=== PATIENT | female | born 1950 | race Caucasian/White ===

== ENCOUNTER → 2016-11-13 | Outpatient (CLI) | payer MEDICARE, OTHER | LOC: RAD 07:54 | PROVIDERS: ATTEND Internal Medicine Gastroenterology | DX: K76.0 Fatty (change of) liver, not elsewhere classified (principal); K74.3 Primary biliary cirrhosis | CPT/HCPCS: 76705 ==

== ENCOUNTER 2016-12-29 09:16 | Emergency (ER) | payer MEDICARE, OTHER ==
[2016-12-29] MEDS ORDERED: NORMAL SALINE 1000 ML 1,000 ML IV ONE (11:01)
--- NOTE | 2016-12-29 11:18 | ER Document Report ---
ED Medical Screen (RME) - General Chief Complaint: Back Pain Stated Complaint: BACK PAIN Time Seen by Provider: 12/29/16 10:26 Notes: Patient is a 66-year-old female who presents emergency department complaining of body aches, chills, low-grade fever, nausea and urinary frequency for the past 9 days. Patient states that 9 days ago she had sudden onset of body aches but has become consistently worse over the past 2 days. She states that she has severe lower extremity pain left worse than the right it is all over the front and back for the legs and in her groin. She denies any urinary/stool incontinence, saddle anesthesia. Patient has taken Percocet and muscle relaxers which have not helped at all. Past medical history significant for MS, osteoarthritis, sciatica, insulin- dependent diabetes, history of thyroid cancer diagnosed in 2010 status post radiation in 2011. Last PET scan was in 2014 which revealed positive lymph nodes which were biopsied and removed. Patient has not had a negative PET scan since. Past surgical history significant for thyroidectomy, lymphadenectomy, breast reduction, hysterectomy Social history significant for history of tobacco use, denies any alcohol use, admits to social marijuana use Denies any allergies Primary care physician is Dr. Geronimo Cadena, oncologist is Dr. Kapoor in [place]. Patient does not currently have a neurologist. I have greeted and performed a rapid initial assessment of this patient. A comprehensive ED assessment and evaluation of the patient, analysis of test results and completion of the medical decision making process will be conducted by additional ED providers. TRAVEL OUTSIDE OF THE [place] IN LAST 30 DAYS: No - Related Data Allergies/Adverse Reactions: No Known Allergies Allergy (Unverified 12/29/16 09:20) Past Medical History - Past Medical History Cardiac Medical History: Reports: Hx Hypertension Denies: Hx Coronary Artery Disease, Hx Heart Attack Pulmonary Medical History: Denies: Hx Asthma, Hx Bronchitis, Hx COPD, Hx Pneumonia Neurological Medical History: Denies: Hx Cerebrovascular Accident Renal/ Medical History: Denies: Hx Peritoneal Dialysis Musculoskeltal Medical History: Reports Hx Arthritis - ms - Immunizations Hx Diphtheria, Pertussis, Tetanus Vaccination: Yes Physical Exam - Vital signs Vitals: Temp Pulse Resp BP Pulse Ox 99.9 F 106 H 20 145/84 H 96 12/29/16 09:22 12/29/16 09:22 12/29/16 09:22 12/29/16 09:22 12/29/16 09:22 - General General appearance: Appears well, Alert, Anxious - Back Back: Tender - diffuse paraspinal muscle tenderness to palpation without tense muscles. No: Deformity/step-off, CVA tenderness, Vertebra tenderness - Extremities General upper extremity: Normal inspection, Normal color, Normal ROM, Normal strength, Normal temperature General lower extremity: Normal inspection, Normal color, Normal ROM, Normal strength, Normal temperature, Other - gait unstable, difficulty bearing weight. No: Isidro's sign Course - Vital Signs Vital signs: Temp Pulse Resp BP Pulse Ox 99.9 F 106 H 20 145/84 H 96 12/29/16 09:22 12/29/16 09:22 12/29/16 09:22 12/29/16 09:22 12/29/16 09:22
--- NOTE | 2016-12-29 12:18 | RADIOLOGY REPORT (SQ) ---
EXAM DESCRIPTION: CHEST PA/LAT COMPLETED DATE/TIME: 12/29/2016 11:59 am REASON FOR STUDY: body aches, fever COMPARISON: 07/02/2007 EXAM PARAMETERS: NUMBER OF VIEWS: two views TECHNIQUE: Digital Frontal and Lateral radiographic views of the chest acquired. RADIATION DOSE: NA LIMITATIONS: none FINDINGS: LUNGS AND PLEURA: No opacities, masses or pneumothorax. No pleural effusion. MEDIASTINUM AND HILAR STRUCTURES: No masses or contour abnormalities. HEART AND VASCULAR STRUCTURES: Heart normal size. No evidence for failure. BONES: No acute findings. HARDWARE: None in the chest. OTHER: No other significant finding. IMPRESSION: NO SIGNIFICANT RADIOGRAPHIC FINDING IN THE CHEST. TECHNICAL DOCUMENTATION: JOB ID: [id number] [employer]- All Rights Reserved
[2016-12-29 13:51] LABS: ABSOLUTE BASOPHILS # (AUTO) 0.1 10^3/uL (0.0-0.2); ABSOLUTE EOSINOPHILS # (AUTO) 0.1 10^3/uL (0.0-0.6); ABSOLUTE LYMPHOCYTES (AUTO) 1.6 10^3/uL (0.5-4.7); ABSOLUTE MONOCYTES (AUTO) 0.6 10^3/uL (0.1-1.4); ABSOLUTE NEUT (AUTO) 9.4 10^3/uL (1.7-8.2); BASOPHILS % (AUTO) 0.6 % (0-2); EOSINOPHILS % (AUTO) 0.9 % (0-6); HEMATOCRIT 37.5 % (36.0-47.0); HEMOGLOBIN 11.9 g/dL (12.0-15.5); HGB HCT DIFFERENCE -1.8; LYMPHOCYTES % (AUTO) 13.2 % (13-45); MEAN CORPUSCULAR HEMOGLOBIN 23.7 pg (27.0-33.4); MEAN CORPUSCULAR HGB CONC 31.8 g/dL (32.0-36.0); MEAN CORPUSCULAR VOLUME 75 fl (80-97); MONOCYTES % (AUTO) 5.4 % (3-13); RED BLOOD COUNT 5.03 10^6/uL (3.72-5.28); RED CELL DISTRIBUTION WIDTH 18.3 % (11.5-14.0); SEGMENTED NEUTROPHILS % (AUTO) 79.9 % (42-78); WHITE BLOOD COUNT 11.8 10^3/uL (4.0-10.5)
[2016-12-29 14:13] LABS: ALANINE AMINOTRANSFERASE 28 U/L (9-52); ALBUMIN 4.1 g/dL (3.5-5.0); ALKALINE PHOSPHATASE 135 U/L (38-126); ANION GAP 13 (5-19); ASPARTATE AMINO TRANSFERASE 26 U/L (14-36); BILIRUBIN,DIRECT 0.4 mg/dL (0.0-0.4); BILIRUBIN,TOTAL 0.8 mg/dL (0.2-1.3); BLOOD UREA NITROGEN 12 mg/dL (7-20); CALCIUM 9.6 mg/dL (8.4-10.2); CARBON DIOXIDE 27 mmol/L (22-30); CHLORIDE 97 mmol/L (98-107); CREATINE KINASE 34 U/L (30-135); CREATININE RESULT 0.75 mg/dL (0.52-1.25); GLUCOSE 101 mg/dL (75-110); POTASSIUM 4.1 mmol/L (3.6-5.0); SODIUM 136.8 mmol/L (137-145); TOTAL PROTEIN 7.6 g/dL (6.3-8.2)
[2016-12-29 14:19] LABS: APPEARANCE,URINE CLEAR; GLUCOSE, URINE NEGATIVE (NEGATIVE)
[2016-12-29 14:20] LABS: BILIRUBIN,URINE NEGATIVE (NEGATIVE); KETONES,URINE NEGATIVE (NEGATIVE); LEUKOCYTE ESTERASE,URINE NEGATIVE (NEGATIVE); NITRITE,URINE NEGATIVE (NEGATIVE); PROTEIN,URINE NEGATIVE (NEGATIVE); RBC,URINE 0-1 /HPF; URINE SPECIFIC GRAVITY 1.015; UROBILINOGEN,URINE NEGATIVE mg/dL (<2.0); WBC,URINE 0-1 /HPF
[2016-12-29] MEDS ORDERED: MORPHINE SULFATE 10 MG/ML INJ IV ONE (14:27)
[2016-12-29] MEDS ORDERED: PREDNISONE 20 MG TABLET PO ONE (14:56)
[2016-12-29] MEDS ORDERED: METHOCARBAMOL 500 MG TABLET PO ONE (14:56)
--- NOTE | 2016-12-29 14:57 | ER Document Report ---
ED Neck/Back Problem - General Chief Complaint: Back Pain Stated Complaint: BACK PAIN Time Seen by Provider: 12/29/16 10:26 Mode of Arrival: Ambulatory Information source: Patient Notes: Patient is a 66-year-old female who presents to the ER today for 1 week of left- sided low back pain radiating around to the left leg, she has a history of sciatica and states that this feels exactly like that. She also has multiple sclerosis patient but states she has never had a flare. She denies pain all over. She denies any fever, chills, dysuria, hematuria, abnormal vaginal discharge, nausea, vomiting or diarrhea. She states she has nothing at home to take for the pain. She denies any numbness or tingling. TRAVEL OUTSIDE OF THE [place] IN LAST 30 DAYS: No - Related Data Allergies/Adverse Reactions: No Known Allergies Allergy (Unverified 12/29/16 09:20) Past Medical History - General Information source: Patient - Social History Smoking Status: Unknown if Ever Smoked Frequency of alcohol use: None Drug Abuse: None Family History: Reviewed & Not Pertinent Patient has suicidal ideation: No Patient has homicidal ideation: No - Past Medical History Cardiac Medical History: Reports: Hx Hypertension Denies: Hx Coronary Artery Disease, Hx Heart Attack Pulmonary Medical History: Denies: Hx Asthma, Hx Bronchitis, Hx COPD, Hx Pneumonia Neurological Medical History: Denies: Hx Cerebrovascular Accident Renal/ Medical History: Denies: Hx Peritoneal Dialysis Musculoskeltal Medical History: Reports Hx Arthritis - ms - Immunizations Hx Diphtheria, Pertussis, Tetanus Vaccination: Yes Review of Systems - Review of Systems Constitutional: No symptoms reported EENT: No symptoms reported Cardiovascular: No symptoms reported Respiratory: No symptoms reported Gastrointestinal: No symptoms reported Genitourinary: No symptoms reported Female Genitourinary: No symptoms reported Musculoskeletal: See HPI Skin: No symptoms reported Hematologic/Lymphatic: No symptoms reported Neurological/Psychological: No symptoms reported Physical Exam - Vital signs Vitals: Temp Pulse Resp BP Pulse Ox 99.9 F 106 H 20 145/84 H 96 12/29/16 09:22 12/29/16 09:22 12/29/16 09:22 12/29/16 09:22 12/29/16 09:22 - Notes Notes: PHYSICAL EXAMINATION: GENERAL: Well-appearing, smiling, texting, sitting in bed comfortably with legs bent, and in no acute distress. HEAD: Atraumatic, normocephalic. EYES: Pupils equal round and reactive to light, extraocular movements intact, sclera anicteric, conjunctiva are normal. NECK: Normal range of motion, supple without lymphadenopathy LUNGS: CTAB and equal. No wheezes rales or rhonchi. HEART: Regular rate and rhythm without murmurs ABDOMEN: Soft, no tenderness. No guarding, no rebound BACK: Bilateral SI joint tenderness, Lumbar vertebral tenderness, normal ROM GI/: no CVA tenderness EXTREMITIES: Normal range of motion, no pitting edema. No cyanosis. NEUROLOGICAL: Cranial nerves grossly intact. Normal sensory/motor exams. PSYCH: Normal mood, normal affect. SKIN: Warm, Dry, normal turgor, no rashes or lesions noted Course - Re-evaluation Re-evalutation: 12/29/16 15:24 Lab work is unremarkable today. I did watch patient walk to the bathroom without any issues. Patient sits up in the bed slowly and winces slightly but otherwise can do it just fine by herself. I do not believe this is an MS flare , patient describes sciatica pain. I will treat her with anti-inflammatory pain medication muscle relaxer and steroids. - Vital Signs Vital signs: Temp Pulse Resp BP Pulse Ox 98.6 F 92 16 142/77 H 95 12/29/16 16:14 12/29/16 16:14 12/29/16 16:14 12/29/16 16:14 12/29/16 16:14 - Laboratory Result Diagrams: 12/29/16 13:17 12/29/16 13:17 Laboratory results interpreted by me: 12/29/16 12/29/16 13:17 13:17 WBC 11.8 H Hgb 11.9 L MCV 75 L MCH 23.7 L MCHC 31.8 L RDW 18.3 H Seg Neutrophils % 79.9 H Absolute Neutrophils 9.4 H Sodium 136.8 L Chloride 97 L Alkaline Phosphatase 135 H Discharge - Discharge Clinical Impression: Sciatica Qualifiers: Laterality: left Qualified Code(s): M54.32 - Sciatica, left side Disposition: HOME, SELF-CARE Instructions: Ice Packs ([facility]), Warm Packs ([facility]) Additional Instructions: Return immediately for any new or worsening symptoms. Follow up with primary care provider, call tomorrow to make followup appointment. Prescriptions: Ibuprofen [Motrin 800 mg Tablet] 800 mg PO Q8H PRN #30 tab PRN Reason: Methocarbamol [Robaxin 500 mg Tablet] 1,000 mg PO BID PRN #120 tablet PRN Reason: Prednisone 60 mg PO DAILY #21 tablet Referrals: CARLOS PRIEST MD [Primary Care Provider] - Follow up as needed
[2016-12-29 16:17] VITALS: BP 142/77
== END 2016-12-29 16:14 | disposition home or self-care (01) ==
LOC: ER 09:16
DX: M54.42 Lumbago with sciatica, left side (principal); G35 Multiple sclerosis; I10 Essential (primary) hypertension
CPT/HCPCS: 99284; 96361; 96374; 36415; 82550; 85025; 80053; 81001; 71020; A9270 ×2; J2270; J7030; J7512

== ENCOUNTER 2017-02-16 08:01 | Day surgery (SDC) | payer MEDICARE, OTHER ==
[2017-02-16 09:26] LABS: PROTHROMBIN TIME 13.8 SEC (11.4-15.4)
[2017-02-16 09:27] LABS: PARTIAL THROMBOPLASTIN TIME 33.3 SEC (23.5-35.8)
--- NOTE | 2017-02-16 12:31 | RADIOLOGY REPORT (SQ) ---
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 FLUOROSCOPY TIME: 1 minutes 36 seconds TECHNIQUE: Fluoroscopic guided lumbar myelogram. LIMITATIONS: None. PROCEDURE: After written consent and assessment were obtained, the patient was brought into the fluo roscopy room and placed prone on the table. The patient's lower back was prepped in a sterile fashio n and an entry site was selected under live fluoroscopic guidance. The entry site was anesthetized wi th 1% lidocaine. The spinal needle was advanced through the skin and into the thecal sac at the level of L2-3. Contrast was injected into the thecal sac. Following the procedure the needle was removed and a sterile bandage was placed of the site. CONTRAST: 15 mL Isovue 200 M. IMAGES ACQUIRED: 15 TECHNIQUE: After performing lumbar myelogram, axial images were acquired through the lumbar spine wi thout intravenous contrast. Images reviewed with lung, soft tissue and bone windows. Reconstructed coronal and sagittal MPR images reviewed. All images stored on PACS. All CT scanners at this facility use dose modulation, iterative reconstruction, and/or weight based d osing when appropriate to reduce radiation dose to as low as reasonably achievable (ALARA). [facility]: Dose Right [facility]: CareDose [facility]: Dose Right [facility]: Teradose 4D [facility]: [employer] FINDINGS: There is ventral impression on the contrast column in the standing position at L3-4, L4- 5 and L5-S1. This does not change significantly with flexion and extension. Alignment is anatomic. Mild narrowing of the disc spaces at multiple levels. Mild spinal stenosis at L4-5 and L5-S1. Facet arthropathy L4- 5 and L5-S1. IMPRESSION: Mild stenosis L4- 5 and L5-S1. Facet arthropathy. COMMENT: Patient medication list reviewed: Yes- Quality ID# [id number]:Eligible professional attests to doc umenting in the medical record they obtained, updated, or reviewed the patient's current medications. TECHNICAL DOCUMENTATION: JOB ID: [id number] Quality ID # [id number]: Final reports with documentation of one or more dose reduction techniques (e.g., Au tomated exposure control, adjustment of the mA and/or kV according to patient size, use of iterative reconstruction technique) 2010 [employer]- All Rights Reserved
--- NOTE | 2017-02-16 12:31 | RADIOLOGY REPORT (SQ) ---
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 FLUOROSCOPY TIME: 1 minutes 36 seconds TECHNIQUE: Fluoroscopic guided lumbar myelogram. LIMITATIONS: None. PROCEDURE: After written consent and assessment were obtained, the patient was brought into the fluo roscopy room and placed prone on the table. The patient's lower back was prepped in a sterile fashio n and an entry site was selected under live fluoroscopic guidance. The entry site was anesthetized wi th 1% lidocaine. The spinal needle was advanced through the skin and into the thecal sac at the level of L2-3. Contrast was injected into the thecal sac. Following the procedure the needle was removed and a sterile bandage was placed of the site. CONTRAST: 15 mL Isovue 200 M. IMAGES ACQUIRED: 15 TECHNIQUE: After performing lumbar myelogram, axial images were acquired through the lumbar spine wi thout intravenous contrast. Images reviewed with lung, soft tissue and bone windows. Reconstructed coronal and sagittal MPR images reviewed. All images stored on PACS. All CT scanners at this facility use dose modulation, iterative reconstruction, and/or weight based d osing when appropriate to reduce radiation dose to as low as reasonably achievable (ALARA). [facility]: Dose Right [facility]: CareDose [facility]: Dose Right [facility]: Teradose 4D [facility]: [employer] FINDINGS: There is ventral impression on the contrast column in the standing position at L3-4, L4- 5 and L5-S1. This does not change significantly with flexion and extension. Alignment is anatomic. Mild narrowing of the disc spaces at multiple levels. Mild spinal stenosis at L4-5 and L5-S1. Facet arthropathy L4- 5 and L5-S1. IMPRESSION: Mild stenosis L4- 5 and L5-S1. Facet arthropathy. COMMENT: Patient medication list reviewed: Yes- Quality ID# [id number]:Eligible professional attests to doc umenting in the medical record they obtained, updated, or reviewed the patient's current medications. TECHNICAL DOCUMENTATION: JOB ID: [id number] Quality ID # [id number]: Final reports with documentation of one or more dose reduction techniques (e.g., Au tomated exposure control, adjustment of the mA and/or kV according to patient size, use of iterative reconstruction technique) 2010 [employer]- All Rights Reserved
[2017-02-16 13:47] VITALS: BP 149/91
== END 2017-02-16 13:00 | disposition home or self-care (01) ==
LOC: RAD 08:01
PROVIDERS: ATTEND Radiology Radiation Oncology
DX: M54.5 Low back pain (principal); Z79.01 Long term (current) use of anticoagulants; Z79.899 Other long term (current) drug therapy; Z79.84 Long term (current) use of oral hypoglycemic drugs
CPT/HCPCS: 36415; 72132; 72265; 82947; 85610; 85730

== ENCOUNTER 2017-03-27 10:50 | Emergency (ER) | payer MEDICARE, OTHER ==
--- NOTE | 2017-03-27 11:11 | ER Document Report ---
ED Medical Screen (RME) - General Chief Complaint: Weakness Stated Complaint: FALL WEAKNESS Time Seen by Provider: 03/27/17 11:01 Notes: This 66-year-old female patient who reports a history of MS but has never had a flare, complains of generalized weakness for several months and generalized body pain for the last 2 months. She states she has been sick for the last 2 months with no appetite and has lost at least 25 pounds due to not wanting to eat. She further states she went to [place] a few months ago for family visitation and fell while walking a [place]. She reports she fell again in the bathtub today. She has not talked to her primary care provider about this weakness, generalized body pains, and weight loss. I have greeted and performed a rapid initial assessment of this patient. A comprehensive ED assessment and evaluation of the patient, analysis of test results and completion of the medical decision making process will be conducted by additional ED providers. TRAVEL OUTSIDE OF THE [place] IN LAST 30 DAYS: No - Related Data Allergies/Adverse Reactions: No Known Allergies Allergy (Verified 03/27/17 10:55) Past Medical History - Social History Chew tobacco use (# tins/day): No Frequency of alcohol use: None Drug Abuse: None - Past Medical History Cardiac Medical History: Reports: Hx Hypertension Denies: Hx Coronary Artery Disease, Hx Heart Attack Pulmonary Medical History: Denies: Hx Asthma, Hx Bronchitis, Hx COPD, Hx Pneumonia Neurological Medical History: Denies: Hx Cerebrovascular Accident, Hx Seizures Renal/ Medical History: Denies: Hx Peritoneal Dialysis Musculoskeltal Medical History: Reports Hx Arthritis - ms - Immunizations Hx Diphtheria, Pertussis, Tetanus Vaccination: Yes Physical Exam - Vital signs Vitals: Temp Pulse Resp BP Pulse Ox 98.9 F 105 H 19 116/78 100 03/27/17 10:52 03/27/17 10:52 03/27/17 10:52 03/27/17 10:52 03/27/17 10:52 Course - Vital Signs Vital signs: Temp Pulse Resp BP Pulse Ox 98.9 F 105 H 19 116/78 100 03/27/17 10:52 03/27/17 10:52 03/27/17 10:52 03/27/17 10:52 03/27/17 10:52
[2017-03-27 11:30] LABS: ABSOLUTE BASOPHILS # (AUTO) 0.1 10^3/uL (0.0-0.2); ABSOLUTE EOSINOPHILS # (AUTO) 0.1 10^3/uL (0.0-0.6); ABSOLUTE LYMPHOCYTES (AUTO) 1.4 10^3/uL (0.5-4.7); ABSOLUTE MONOCYTES (AUTO) 0.6 10^3/uL (0.1-1.4); ABSOLUTE NEUT (AUTO) 6.1 10^3/uL (1.7-8.2); BASOPHILS % (AUTO) 1.1 % (0-2); EOSINOPHILS % (AUTO) 1.2 % (0-6); HEMATOCRIT 35.2 % (36.0-47.0); HEMOGLOBIN 11.8 g/dL (12.0-15.5); HGB HCT DIFFERENCE 0.2; LYMPHOCYTES % (AUTO) 16.7 % (13-45); MEAN CORPUSCULAR HEMOGLOBIN 25.6 pg (27.0-33.4); MEAN CORPUSCULAR HGB CONC 33.6 g/dL (32.0-36.0); MEAN CORPUSCULAR VOLUME 76 fl (80-97); MONOCYTES % (AUTO) 7.7 % (3-13); RED BLOOD COUNT 4.63 10^6/uL (3.72-5.28); RED CELL DISTRIBUTION WIDTH 15.3 % (11.5-14.0); SEGMENTED NEUTROPHILS % (AUTO) 73.3 % (42-78); WHITE BLOOD COUNT 8.3 10^3/uL (4.0-10.5)
[2017-03-27 11:40] LABS: PROTHROMBIN TIME 14.2 SEC (11.4-15.4)
[2017-03-27 11:54] LABS: ALANINE AMINOTRANSFERASE 27 U/L (9-52); ALBUMIN 3.8 g/dL (3.5-5.0); ALKALINE PHOSPHATASE 152 U/L (38-126); ANION GAP 16 (5-19); ASPARTATE AMINO TRANSFERASE 22 U/L (14-36); BILIRUBIN,DIRECT 0.5 mg/dL (0.0-0.4); BILIRUBIN,TOTAL 0.9 mg/dL (0.2-1.3); BLOOD UREA NITROGEN 10 mg/dL (7-20); CALCIUM 10.5 mg/dL (8.4-10.2); CARBON DIOXIDE 22 mmol/L (22-30); CHLORIDE 99 mmol/L (98-107); GLUCOSE 125 mg/dL (75-110); POTASSIUM 3.4 mmol/L (3.6-5.0); SODIUM 136.9 mmol/L (137-145); TOTAL PROTEIN 7.1 g/dL (6.3-8.2)
[2017-03-27 12:05] LABS: FREE T3 3.33 pg/mL (2.77-5.27)
[2017-03-27 12:06] LABS: CREATINE KINASE < 20 U/L (30-135)
[2017-03-27 12:10] LABS: MAGNESIUM 0.9 mg/dL (1.6-2.3)
[2017-03-27] MEDS ORDERED: MAGNESIUM OXIDE 400 MG TABLET PO ONE (12:25)
--- NOTE | 2017-03-27 13:06 | ER Document Report ---
ED General - General Chief Complaint: Weakness Stated Complaint: FALL WEAKNESS Time Seen by Provider: 03/27/17 11:01 Mode of Arrival: Ambulatory Information source: Patient Notes: 66-year-old female history of depression anxiety whose niece from liver disease approximately 1 month ago has been depressed since presents with complaints of not feeling well. Patient is concerned her liver may be the cause of it. TRAVEL OUTSIDE OF THE [place] IN LAST 30 DAYS: No - HPI Onset: Other - 1 mCi Onset/Duration: Persistent Quality of pain: No pain Severity: Mild Pain Level: Denies Associated symptoms: Weakness Exacerbated by: Denies Relieved by: Denies Similar symptoms previously: No Recently seen / treated by doctor: No - Related Data Allergies/Adverse Reactions: No Known Allergies Allergy (Verified 03/27/17 10:55) Past Medical History - Social History Smoking Status: Former Smoker Cigarette use (# per day): No Chew tobacco use (# tins/day): No Smoking Education Provided: No Frequency of alcohol use: None Drug Abuse: None Family History: Reviewed & Not Pertinent - Past Medical History Cardiac Medical History: Reports: Hx Hypertension Denies: Hx Coronary Artery Disease, Hx Heart Attack Pulmonary Medical History: Denies: Hx Asthma, Hx Bronchitis, Hx COPD, Hx Pneumonia Neurological Medical History: Denies: Hx Cerebrovascular Accident, Hx Seizures Renal/ Medical History: Denies: Hx Peritoneal Dialysis Musculoskeltal Medical History: Reports Hx Arthritis - ms - Immunizations Hx Diphtheria, Pertussis, Tetanus Vaccination: Yes Review of Systems - Review of Systems Notes: REVIEW OF SYSTEMS: CONSTITUTIONAL : Denies fever, chills, or sweats. Denies recent illness. EENT: Denies eye, ear, throat, or mouth pain or symptoms. Denies nasal or sinus congestion or discharge. Denies throat, tongue, or mouth swelling or difficulty swallowing. CARDIOVASCULAR: Denies chest pain. Denies palpitations or racing or irregular heart beat. Denies ankle edema. RESPIRATORY: Denies cough, cold, or chest congestion. Denies shortness of breath, difficulty breathing, or wheezing. GASTROINTESTINAL: Denies abdominal pain or distention. Denies nausea, vomiting , or diarrhea. Denies blood in vomitus, stools, or per rectum. Denies black, tarry stools. Denies constipation. GENITOURINARY: Denies difficulty urinating, painful urination, burning, frequency, blood in urine, or discharge. FEMALE GENITOURINARY: Denies vaginal bleeding, heavy or abnormal periods, irregular periods. Denies vaginal discharge or odor. MUSCULOSKELETAL: Denies back or neck pain or stiffness. Denies joint pain or swelling. SKIN: Denies rash, lesions or sores. HEMATOLOGIC : Denies easy bruising or bleeding. LYMPHATIC: Denies swollen, enlarged glands. NEUROLOGICAL: Admits to generalized weakness PSYCHIATRIC: Denies anxiety or stress. Denies depression, suicidal ideation, or homicidal ideation. ALL OTHER SYSTEMS REVIEWED AND NEGATIVE. PHYSICAL EXAMINATION: GENERAL: Well-appearing, well-nourished and in no acute distress. HEAD: Atraumatic, normocephalic. EYES: Pupils equal round and reactive to light, extraocular movements intact, conjunctiva are normal. ENT: Nares patent, oropharynx clear without exudates. Moist mucous membranes. NECK: Normal range of motion, supple without lymphadenopathy LUNGS: Breath sounds clear to auscultation bilaterally and equal. No wheezes rales or rhonchi. HEART: Regular rate and rhythm without murmurs ABDOMEN: Soft, nontender, nondistended abdomen. No guarding, no rebound. No masses appreciated. Female : deferred Musculoskeletal: Normal range of motion, no pitting or edema. No cyanosis. NEUROLOGICAL: Cranial nerves grossly intact. Normal speech, normal gait. Normal sensory, motor exams PSYCH: Patient appears infatuated with her nieces passing SKIN: Warm, Dry, normal turgor, no rashes or lesions noted. Dictation was performed using [employer] voice recognition software Physical Exam - Vital signs Vitals: Temp Pulse Resp BP Pulse Ox 98.9 F 105 H 19 116/78 100 03/27/17 10:52 03/27/17 10:52 03/27/17 10:52 03/27/17 10:52 03/27/17 10:52 Course - Re-evaluation Re-evalutation: 03/27/17 18:10 agrees that patient is depressed, he does have follow-up with psychiatry on Thursday. Lab work does note low magnesium as well as elevated TSH, patient just had her primary care physician increasing her Synthroid from 150 mcg to 175 mcg and has not yet started this increase. Patient was treated for her low magnesium and will be this advanced home with further magnesium Otherwise patient looks well is in no distress will be discharged home to follow -up with primary care physician and very strict return precautions have been provided After performing a Medical Screening Examination, I estimate there is LOW risk for INTRACRANIAL HEMORRHAGE, ISCHEMIC CVA, MALIGNANT DYSRHYTHMIA, ACUTE CORONARY SYNDROME, MENINGITIS, PULMONARY EMBOLISM, or SEPSIS thus I consider the discharge disposition reasonable. I have reevaluated this patient multiple times and no significant life threatening changes are noted. The patient and I have discussed the diagnosis and risks, and we agree with discharging home with close follow-up with the understanding that symptoms and presentations can change. We also discussed returning to the Emergency Department immediately if new or worsening symptoms occur. We have discussed the symptoms which are most concerning (e.g., changing or worsening pain, weakness, vomiting, fever) that necessitate immediate return. - Vital Signs Vital signs: Temp Pulse Resp BP Pulse Ox 99.2 F 95 18 137/82 H 95 03/27/17 13:26 03/27/17 13:26 03/27/17 13:26 03/27/17 13:26 03/27/17 13:26 - Laboratory Result Diagrams: 03/27/17 11:18 03/27/17 11:18 Laboratory results interpreted by me: 03/27/17 03/27/17 03/27/17 11:18 11:18 11:18 Hgb 11.8 L Hct 35.2 L MCV 76 L MCH 25.6 L RDW 15.3 H Sodium 136.9 L Potassium 3.4 L Glucose 125 H Calcium 10.5 H Magnesium 0.9 L* Direct Bilirubin 0.5 H Alkaline Phosphatase 152 H Creatine Kinase < 20 L TSH 14.00 H Discharge - Discharge Clinical Impression: Hypomagnesemia Hypothyroid Qualifiers: Hypothyroidism type: unspecified Qualified Code(s): E03.9 - Hypothyroidism, unspecified Condition: Stable Disposition: HOME, SELF-CARE Instructions: Thyroid Hormone ([facility]) Prescriptions: Magnesium Oxide 500 mg PO DAILY #5 tablet Referrals: CARLOS PRIEST MD [Primary Care Provider] - Follow up in 3-5 days
[2017-03-27 13:27] VITALS: BP 137/82
== END 2017-03-27 13:27 | disposition home or self-care (01) ==
LOC: ER 10:50
DX: E83.42 Hypomagnesemia (principal); E03.9 Hypothyroidism, unspecified; R53.1 Weakness; F32.9 Major depressive disorder, single episode, unspecified; Z87.891 Personal history of nicotine dependence; I10 Essential (primary) hypertension; Z79.899 Other long term (current) drug therapy
CPT/HCPCS: 99284; 36415; 84439; 82550; 83735; 84443; 85025; 85610; 80053; 84481; A9270

== ENCOUNTER → 2017-11-25 | Outpatient (CLI) | payer MEDICARE, OTHER ==
--- NOTE | 2017-11-25 08:35 | WOMENS IMAGING REPORT ---
EXAM DESCRIPTION: U/S ABDOMEN LIMITED COMPLETED DATE/TIME: 11/25/2017 7:32 am REASON FOR STUDY: PRIMARY BILIARY CIRRHOSIS K74.3 PRIMARY BILIARY CIRRHOSIS K76.0 FATTY (CHANGE OF ) LIVER, NOT ELSEWHERE CLASSIFIED COMPARISON: CT liver biopsy 07/12/2012 Abdominal ultrasound 09/19/2015, 11/13/2016 TECHNIQUE: Dynamic and static grayscale images acquired of the abdomen and recorded on PACS. Additio nal selected color Doppler and spectral images recorded. LIMITATIONS: Midline bowel gas FINDINGS: PANCREAS: Midline pancreas unremarkable LIVER: Normal size liver with increased echogenicity from diffuse hepatocellular disease or fatty inf iltration. No focal masses. LIVER VASCULATURE: Normal directional flow of the main portal vein and hepatic veins. GALLBLADDER: Contracted. No stones. No wall thickening or pericholecystic fluid. ULTRASOUND-DETECTED GOODWIN'S SIGN: Negative. INTRAHEPATIC DUCTS AND COMMON DUCT: CBD and intrahepatic ducts normal caliber. No filling defects. INFERIOR VENA CAVA: Normal flow. AORTA: No aneurysm. RIGHT KIDNEY: Normal size. Normal echogenicity. No solid or suspicious masses. No hydronephrosis. No calcifications. PERITONEAL AND RIGHT PLEURAL SPACE: No ascites or effusions. OTHER: No other significant findings. IMPRESSION: Stable mild increased echogenicity of the liver. TECHNICAL DOCUMENTATION: JOB ID: [id number] [employer]- All Rights Reserved Reading location - IP/workstation name: [email or web address]
== END ==
LOC: WI 07:05
PROVIDERS: ATTEND Internal Medicine Gastroenterology
DX: K74.3 Primary biliary cirrhosis (principal); K76.0 Fatty (change of) liver, not elsewhere classified
CPT/HCPCS: 76705

== ENCOUNTER → 2017-12-27 | Outpatient (CLI) | payer MEDICARE, OTHER ==
--- NOTE | 2017-12-28 11:46 | RADIOLOGY REPORT (SQ) ---
EXAM DESCRIPTION: PET CT SKULL/THIGH COMPLETED DATE/TIME: 12/27/2017 8:43 pm REASON FOR STUDY: THYROID CANCER C73 MALIGNANT NEOPLASM OF THYROID GLAND COMPARISON: None. RADIONUCLIDE AND DOSE: 10.0 mCi F18 FDG The route of agent administration: Intravenous FASTING BLOOD SUGAR: 88 mg/dl CONTRAST TYPE AND DOSE: No CT contrast given. TECHNIQUE: Blood glucose level was verified. Above dose of FDG was injected intravenously. 2-D seg mented attenuation correction images were obtained from the base of the skull to the midthighs. Nonc ontrast CT images were obtained for attenuation correction and fusion with emission images. CT image s were performed without oral or intravenous contrast and are not sensitive for parenchymal lesions. A series of overlapping emission PET images were obtained. Images reviewed and manipulated at [facility] work station by the radiologist. Images stored on PACS. LIMITATIONS: None. FINDINGS: HEAD AND NECK: There is a single lymph node in the lower left neck located just below the skin surface measuring 1 cm. This is located just above the clavicle. Mean SUV 16.1. This is adjac ent to surgical clips. No other abnormal activity in the head and neck. CHEST: No areas of abnormal metabolic activity in the chest. ABDOMEN AND PELVIS: There is a prominent focal area of increased activity in the gastric wall at or j ust below the gastroesophageal junction with mean SUV 6.55. No discrete lesions seen on noncontrast CT. No other areas of abnormal metabolic activity in the abdomen or pelvis. Expected physiologic ac tivity is present in the genitourinary system and bowel. PROXIMAL LOWER EXTREMITIES: No areas of abnormal metabolic activity in the soft tissues of the lower extremities. BONES: No abnormal metabolic activity in the visualized skeleton. ADDITIONAL CT FINDINGS: No additional significant findings on the noncontrast CT images. OTHER: Background liver activity mean SUV 1.67. Background blood pool activity mean SUV 1.44. IMPRESSION: 1. SINGLE HYPERMETABOLIC LYMPH NODE IN THE LOWER LEFT NECK DESCRIBED CONSISTENT WITH METASTASIS. THIS IS LOCATED JUST ABOVE THE SURGICAL CLIPS FROM PREVIOUS LYMPH NODE REMOVAL. NO OTHER ABNORMAL AC TIVITY IN THE HEAD AND NECK. 2. PROMINENT FOCAL AREA OF INCREASED ACTIVITY IN THE GASTRIC WALL AT OR JUST BELOW THE GASTROESOPHAGE AL JUNCTION. THIS COULD REPRESENT NORMAL ACTIVITY RELATED TO GASTRIC EXCRETION, ALTHOUGH THE FOCAL N ATURE IS QUITE NOTICEABLE. OTHER ETIOLOGIES INCLUDE MUCOSAL MASS OR POSSIBLY LOCAL GASTRITIS OR ULCE RATION. MAY CONSIDER ENDOSCOPY TO VISUALIZE THIS AREA OF THE STOMACH FOR ANY MUCOSAL LESIONS. 3. REMAINDER OF THE PET SCAN IS OTHERWISE UNREMARKABLE. NO OTHER AREAS OF ABNORMAL ACTIVITY. TECHNICAL DOCUMENTATION: JOB ID: [id number] [employer]- All Rights Reserved Reading location - IP/workstation name: [email or web address]
== END ==
LOC: RAD 17:45
PROVIDERS: ATTEND Otolaryngology
DX: C73 Malignant neoplasm of thyroid gland (principal); C77.0 Secondary and unspecified malignant neoplasm of lymph nodes of head, face and neck
CPT/HCPCS: 78815; A9552

== ENCOUNTER 2018-01-08 07:55 | Observation (INO) | payer MEDICARE, OTHER ==
[2018-01-04 10:47] LABS: ABSOLUTE BASOPHILS # (AUTO) 0.1 10^3/uL (0.0-0.2); ABSOLUTE EOSINOPHILS # (AUTO) 0.8 10^3/uL (0.0-0.6); ABSOLUTE LYMPHOCYTES (AUTO) 1.3 10^3/uL (0.5-4.7); ABSOLUTE MONOCYTES (AUTO) 0.4 10^3/uL (0.1-1.4); ABSOLUTE NEUT (AUTO) 4.5 10^3/uL (1.7-8.2); HEMATOCRIT 39.6 % (36.0-47.0); HEMOGLOBIN 13.6 g/dL (12.0-15.5); LYMPHOCYTES % (AUTO) 18.3 % (13-45); MEAN CORPUSCULAR HEMOGLOBIN 28.7 pg (27.0-33.4); MEAN CORPUSCULAR HGB CONC 34.4 g/dL (32.0-36.0); MEAN CORPUSCULAR VOLUME 84 fl (80-97); MONOCYTES % (AUTO) 6.1 % (3-13); PLATELET COUNT 174 10^3/uL (150-450); RED BLOOD COUNT 4.74 10^6/uL (3.72-5.28); RED CELL DISTRIBUTION WIDTH 13.5 % (11.5-14.0); SEGMENTED NEUTROPHILS % (AUTO) 63.6 % (42-78); TOTAL CELLS COUNTED % (AUTO) 100 %; WHITE BLOOD COUNT 7.1 10^3/uL (4.0-10.5)
[2018-01-04 11:11] LABS: ANION GAP 14 (5-19); BLOOD UREA NITROGEN 15 mg/dL (7-20); CALCIUM 9.5 mg/dL (8.4-10.2); CARBON DIOXIDE 29 mmol/L (22-30); CHLORIDE 101 mmol/L (98-107); GLUCOSE 105 mg/dL (75-110); SODIUM 144.2 mmol/L (137-145)
--- NOTE | 2018-01-04 12:42 | EKG REPORT ---
SEVERITY:- NORMAL ECG - SINUS RHYTHM : Confirmed by: Omid Matias MD 04-Jan-2018 12:42:07
[~2018-01-08 07:55] MED LIST: ACETAMINOPHEN 1,000 MG/100 ML RTUPB IV ONE; CEFAZOLIN 2 GM/D5W RTU 2 GM/50 ML RTUPB IV PRN; DEXAMETHASONE SOD PHOSPHATE INJ 4 MG/1 ML VIAL ONE; FENTANYL CITRATE INJ/PF 100 MCG/2 ML AMPUL ONE; LACTATED RINGERS 1000 ML IV PRN; LIDOCAINE 0.5% INJ-PF (5 MG/ML) 50 ML SDV SUBCUT PRN; LIDOCAINE 2% INJ-PF (20 MG/ML) 10 ML AMPUL ONE; MIDAZOLAM 2 MG/2 ML INJ ONE; PROPOFOL INJ 200 MG/20 ML VIAL IV ONE
[2018-01-08] MEDS ORDERED: MIDAZOLAM 2 MG/2 ML INJ ONE (08:20)
[2018-01-08] MEDS ORDERED: METOCLOPRAMIDE HCL INJ/PF 10 MG/2 ML SDV ONE (08:20)
[2018-01-08] MEDS ORDERED: FAMOTIDINE INJ/PF 20 MG/2 ML SDV IV ONE (08:20)
[2018-01-08] MEDS ORDERED: SCOPOLAMINE HYDROBROMIDE 1.5 MG PATCH.TD72 ONE (08:20)
[2018-01-08] MEDS ORDERED: LIDOCAINE 2%/EPINEPHRINE INJ 1.7 ML CARTRIDGE ONE ×2 (09:11→09:56)
[2018-01-08] MEDS ORDERED: PROMETHAZINE HCL INJ 25 MG/1 ML VIAL IV PRN ×3 (10:42→12:16)
[2018-01-08] MEDS ORDERED: DIPHENHYDRAMINE HCL 50 MG/ML VIAL IV PRN (10:42)
[2018-01-08] MEDS ORDERED: FENTANYL CITRATE INJ/PF 100 MCG/2 ML AMPUL IV PRN ×3 (10:42)
[2018-01-08] MEDS ORDERED: MEPERIDINE HCL/PF INJ 25 MG/1 ML DISP.SYRIN IV PRN (10:42)
[2018-01-08] MEDS ORDERED: MORPHINE SULFATE 10 MG/ML INJ IV PRN (10:42)
[2018-01-08] MEDS ORDERED: OXYCODONE-ACETAMINOPHEN 5-325 MG TABLET PO PRN ×2 (11:56→12:16)
[2018-01-08] MEDS ORDERED: ONDANSETRON HCL INJ/PF 4 MG/2 ML SDV IV PRN (12:16)
[2018-01-08] MEDS ORDERED: RINGERS SOLUTION,LACTATED 1,000 ML IV PRN (12:16)
[2018-01-08 13:51] VITALS: BP 167/83
[2018-01-08] MEDS ORDERED: SUCCINYLCHOLINE CHLORIDE INJ 200 MG/10 ML VIAL ONE (16:48)
--- NOTE | 2018-02-07 23:15 | OPERATIVE REPORT E ---
Operative Report NAME: GUSTAVO WILLINGHAM : 1950 AGE: 67Y DATE OF SURGERY: 01/08/2018 ROOM: OR PREOPERATIVE DIAGNOSIS: 1. LEFT NECK MALIGNANT MASS CONSISTENT WITH PAPILLARY THYROID CANCER. 2. HISTORY OF PAPILLARY THYROID CANCER. POSTOPERATIVE DIAGNOSIS: 1. LEFT NECK MALIGNANT MASS CONSISTENT WITH PAPILLARY THYROID CANCER. 2. HISTORY OF PAPILLARY THYROID CANCER. OPERATION PERFORMED: 1. Left neck excision of a papillary thyroid cancer malignant mass measuring greater than 2 x 2 cm. 2. Left neck excisional biopsies X 2, each measuring approximately 1 x 1 cm in size. SURGEON: KAILASH GANDARA D.O. ANESTHESIA: General endotracheal tube ANESTHESIA STAFF: DAPHNE DAMICO ESTIMATED BLOOD LOSS: None. FLUIDS: None. COMPLICATIONS: None. DRAINS: None. SPONGE COUNT: Verified. NEEDLE COUNT: Verified. MATERIALS FORWARDED: 1. Specimen #1: Left neck malignant mass measuring greater than 2 x 2 cm and consistent with papillary thyroid cancer on fine needle aspiration biopsy, and this was sent for permanent pathology evaluation. 2. Specimen #2: Left neck excisional biopsy sent for permanent pathology evaluation for rule out papillary thyroid cancer. 3. Specimen #3: Excisional biopsy left neck sent for permanent pathology evaluation for rule out papillary thyroid cancer. FINDINGS: 1. Left neck supraclavicular aspect with malignant mass measuring greater than 2 x 2 cm in size which was consistent with papillary thyroid cancer on prior FNAB. The malignant mass was completely excised with normal appearing fibrofatty subcutaneous tissue surrounding the mass. There were 2 additional biopsies performed at the mid and lateral aspect of the incision site with tissue appearing concerning for small lymph nodes. As noted above these were sent for permanent pathology evaluation for rule out papillary thyroid cancer. 2. There were no additional findings of concerns. 3. There was no lymphadenopathy noted. INDICATIONS: This is a 67-year-old white female patient who is well-known to otolaryngology, Dr. Gandara, both through [facility] and [facility]. The patient is also well-known to Dr. Kapoor, endocrinology, [place], [place]. The patient has an extensive history of papillary thyroid cancer, is status post total thyroidectomy years ago, and is status post multiple neck dissections over the years for papillary thyroid cancer and recurrences. With this most recent episode the patient was noted to have a left base of neck mass and on FNAB and findings were consistent with papillary thyroid cancer. After extensive discussion with the patient, recommendation and plan was for excision of the malignant mass with additional biopsies as directed. The procedures and all of their risks and complications were all discussed with the patient. She voiced an understanding of the described surgical plan, agreed to proceed, and consent was obtained. PROCEDURE: The patient was taken to the main operating room and was placed on the operating room table in the supine position. Appropriate monitors placed. Using mask and iv access general anesthesia was induced. The patient was next transorally intubated without difficulty. There was an incision plan marked with a surgical marking pen and this area was next infiltrated with local anesthetic with epinephrine. The patient was then prepped and draped in the usual fashion for neck surgery. There was an elliptical incision made with a central skin island that was overlying the mass which was removed in block with the underlying malignant mass. As noted above, the mass was completely surrounded by normal appearing fibrofatty/subcutaneous tissue. As noted above, as well there were 2 additional biopsies that were performed of tissue that appeared with concern for the presence of small lymph nodes. At this point there was undermining of the surrounding skin margins to reduce tension upon complex closure of the wound. The area was thoroughly irrigated. Bipolar electrocautery was used for achieving adequate hemostasis. Next the wound site was closed in a layered fashion. Monocryl was used to reapproximate the deep subcutaneous tissue. This was followed by use of Monocryl to reapproximate the deep dermal tissues. Last the skin margins were reapproximated with a continuous deep dermal suture. Next the skin was cleaned and dried, followed by placement of Mastisol and Steri-Strips and a pressure dressing. At this point the patient was returned to the anesthesia staff and was allowed to emerge from general anesthesia. The patient was extubated in the main operating room and was then transported to the postanesthesia recovery unit in stable condition. There were no complications. DICTATING PHYSICIAN: KAILASH GANDARA D.O. [id number] PHY#: [id number] ID: [id number] JOB#: [id number] ACCT: [id number] cc:KAILASH GANDARA D.O. > MTDTheo
== END 2018-01-08 13:20 | disposition home or self-care (01) ==
LOC: INTOOBSV 07:55 → INOR 07:55 → EDSTATUS 08:30
PROVIDERS: ADMIT Otolaryngology; ATTEND Otolaryngology
PROC: 0JB50ZZ Excision of Left Neck Subcutaneous Tissue and Fascia, Open Approach (ICD-10-PCS; principal; 2018-01-08 10:00)
DX: C73 Malignant neoplasm of thyroid gland (principal); L73.8 Other specified follicular disorders; Z85.850 Personal history of malignant neoplasm of thyroid; G44.89 Other headache syndrome; M26.609 Unspecified temporomandibular joint disorder, unspecified side; H91.13 Presbycusis, bilateral; G35 Multiple sclerosis; E89.2 Postprocedural hypoparathyroidism; I10 Essential (primary) hypertension; E89.0 Postprocedural hypothyroidism; E11.9 Type 2 diabetes mellitus without complications; Z92.3 Personal history of irradiation; Z98.890 Other specified postprocedural states; Z79.899 Other long term (current) drug therapy; Z79.4 Long term (current) use of insulin
CPT/HCPCS: 93005; 36415; 82962; 85025; 80048; 88342 ×2; 88341 ×2; 88305 ×2; 93010; 21552; J2250; J3490 ×2; J1100; J3010; J2765; J0330; J2704; S0028; J0690; J0131; 300

== ENCOUNTER → 2018-10-17 | Outpatient (CLI) | payer MEDICARE, OTHER ==
--- NOTE | 2018-10-18 11:26 | RADIOLOGY REPORT (SQ) ---
EXAM DESCRIPTION: PET CT SKULL/THIGH COMPLETED DATE/TIME: 10/17/2018 9:25 pm REASON FOR STUDY: THYROID CANCER C73 MALIGNANT NEOPLASM OF THYROID GLAND COMPARISON: 12/27/2017. RADIONUCLIDE AND DOSE: 10 mCi F18 FDG The route of agent administration: Intravenous FASTING BLOOD SUGAR: 96 mg/dl CONTRAST TYPE AND DOSE: No CT contrast given. TECHNIQUE: Blood glucose level was verified. Above dose of FDG was injected intravenously. 2-D seg mented attenuation correction images were obtained from the base of the skull to the midthighs. Nonc ontrast CT images were obtained for attenuation correction and fusion with emission images. CT image s were performed without oral or intravenous contrast and are not sensitive for parenchymal lesions. A series of overlapping emission PET images were obtained. Images reviewed and manipulated at [facility] work station by the radiologist. Images stored on PACS. LIMITATIONS: None. FINDINGS: HEAD AND NECK: There is focal increased activity in the anterior aspect of the palate with no associated CT abnormality. Mean SUV 6.68. This may be artifact from the adjacent tongue althoug h no activity elsewhere in the time. No other areas of abnormal metabolic activity in the soft tissu es of the head and neck. CHEST: No areas of abnormal metabolic activity in the chest. ABDOMEN AND PELVIS: No areas of abnormal metabolic activity in the abdomen or pelvis. Expected physi ologic activity is present in the genitourinary system and bowel. PROXIMAL LOWER EXTREMITIES: No areas of abnormal metabolic activity in the soft tissues of the lower extremities. BONES: No abnormal metabolic activity in the visualized skeleton. ADDITIONAL CT FINDINGS: Colonic diverticulosis. No additional significant findings on the noncontras t CT images. OTHER: Background blood pool activity mean SUV 1.48. Background liver activity mean SUV 1.93. No ot her significant findings. IMPRESSION: 1. FOCAL INCREASED ACTIVITY IN THE ANTERIOR ASPECT OF THE PALATE. NO ASSOCIATED CT ABNORMALITY. THI S COULD BE ARTIFACT DUE TO ACTIVITY IN THE TONGUE ALTHOUGH IT IS ONLY LOCATED ANTERIORLY AND NO OTHER ACTIVITY IDENTIFIED WITHIN THE TONGUE. CANNOT EXCLUDE FOCAL INFLAMMATORY CHANGES OR MASS. RECOMMEN D CLINICAL EVALUATION OF THE PALATE AND TONGUE TO DETERMINE IF ANY LESIONS ARE PRESENT. 2. NO OTHER SIGNIFICANT FINDINGS ON PET IMAGING. THE PREVIOUSLY SEEN HYPERMETABOLIC LYMPH NODE ON TH E LEFT SIDE OF THE NECK IS NO LONGER PRESENT. TECHNICAL DOCUMENTATION: JOB ID: [id number]- All Rights Reserved Reading location - IP/workstation name: [email or web address]
== END ==
LOC: RAD 18:45
PROVIDERS: ATTEND Otolaryngology
DX: C73 Malignant neoplasm of thyroid gland (principal)
CPT/HCPCS: 78815; A9552

== ENCOUNTER → 2019-01-19 | Outpatient (CLI) | payer MEDICARE, OTHER ==
--- NOTE | 2019-01-19 09:34 | WOMENS IMAGING REPORT ---
EXAM DESCRIPTION: U/S ABDOMEN LIMITED COMPLETED DATE/TIME: 01/19/2019 8:53 am REASON FOR STUDY: K74.3 PRIMARY BILIARY CIRRHOSIS K74.3 PRIMARY BILIARY CIRRHOSIS COMPARISON: 2017 TECHNIQUE: Dynamic and static grayscale images acquired of the abdomen and recorded on PACS. Additio nal selected color Doppler and spectral images recorded. LIMITATIONS: Limiting bowel gas, acoustical interference obscures some structures. FINDINGS: PANCREAS: Normal as assessed. Limited visualization. LIVER: Echotexture is coarse with increased echogenicity consistent with fatty infiltration. LIVER VASCULATURE: Normal directional flow of the main portal vein and hepatic veins. GALLBLADDER: Contracted, unremarkable otherwise. ULTRASOUND-DETECTED GOODWIN'S SIGN: Negative. INTRAHEPATIC DUCTS AND COMMON DUCT: CBD and intrahepatic ducts normal caliber. No filling defects. INFERIOR VENA CAVA: Limited visualization. AORTA: Limited visualization. No gross aneurysm. RIGHT KIDNEY: Normal size. Normal echogenicity. No solid or suspicious masses. No hydronephros is. No calcifications. PERITONEAL AND RIGHT PLEURAL SPACE: No ascites or effusions. OTHER: No other significant finding. IMPRESSION: FATTY INFILTRATION OF THE LIVER. OTHERWISE NORMAL RIGHT UPPER QUADRANT ULTRASOUND. TECHNICAL DOCUMENTATION: JOB ID: [id number] [email or web address]- All Rights Reserved Reading location - IP/workstation name: [email or web address]
== END ==
LOC: WI 08:09
PROVIDERS: ATTEND Internal Medicine Gastroenterology
DX: K74.3 Primary biliary cirrhosis (principal); K76.0 Fatty (change of) liver, not elsewhere classified
CPT/HCPCS: 76705

== ENCOUNTER → 2019-12-01 | Outpatient (CLI) | payer MEDICARE, OTHER ==
[2019-12-01 08:00] LABS: HEMATOCRIT 42.2 % (36.0-47.0); HEMOGLOBIN 14.6 g/dL (12.0-15.5); MEAN CORPUSCULAR HEMOGLOBIN 30.4 pg (27.0-33.4); MEAN CORPUSCULAR HGB CONC 34.6 g/dL (32.0-36.0); MEAN CORPUSCULAR VOLUME 88 fl (80-97); PLATELET COUNT 147 10^3/uL (150-450); RED CELL DISTRIBUTION WIDTH 13.2 % (11.5-14.0); WHITE BLOOD COUNT 5.7 10^3/uL (4.0-10.5)
[2019-12-01 08:27] LABS: ALBUMIN 4.3 g/dL (3.5-5.0); ALKALINE PHOSPHATASE 129 U/L (38-126); ANION GAP 10 (5-19); ASPARTATE AMINO TRANSFERASE 42 U/L (14-36); BILIRUBIN,DIRECT 0.1 mg/dL (0.0-0.4); BILIRUBIN,TOTAL 0.7 mg/dL (0.2-1.3); BLOOD UREA NITROGEN 16 mg/dL (7-20); CALCIUM 9.7 mg/dL (8.4-10.2); CARBON DIOXIDE 30 mmol/L (22-30); CHLORIDE 98 mmol/L (98-107); GLUCOSE 123 mg/dL (75-110); POTASSIUM 3.9 mmol/L (3.6-5.0); TOTAL PROTEIN 7.7 g/dL (6.3-8.2)
== END ==
LOC: OD 07:06
PROVIDERS: ATTEND Internal Medicine Gastroenterology
DX: K92.1 Melena (principal)
CPT/HCPCS: 36415; 80048; 80076; 82728; 85027

== ENCOUNTER → 2020-04-30 | Outpatient (CLI) | payer MEDICARE, OTHER ==
--- NOTE | 2020-04-30 09:01 | WOMENS IMAGING REPORT ---
EXAM DESCRIPTION: U/S ABDOMEN LIMITED IMAGES COMPLETED DATE/TIME: 04/30/2020 8:48 am REASON FOR STUDY: K74.3 PRIMARY BILIARY CIRRHOSIS K74.3 PRIMARY BILIARY CIRRHOSIS COMPARISON: 01/19/2019 TECHNIQUE: Dynamic and static grayscale images acquired of the abdomen and recorded on PACS. Additio nal selected color Doppler and spectral images recorded. LIMITATIONS: None. FINDINGS: PANCREAS: Visualized portions the pancreas are normal in appearance. Majority the pancrea s is obscured by overlying bowel gas. LIVER: Echotexture is coarse with increased echogenicity consistent with fatty infiltration. LIVER VASCULATURE: Normal directional flow of the main portal vein and hepatic veins. GALLBLADDER: No stones. Normal wall thickness. No pericholecystic fluid. ULTRASOUND-DETECTED GOODWIN'S SIGN: Negative. INTRAHEPATIC DUCTS AND COMMON DUCT: CBD and intrahepatic ducts normal caliber. No filling defects. INFERIOR VENA CAVA: Normal flow. AORTA: Visualized portions the pancreas are normal in caliber. RIGHT KIDNEY: Normal size. Normal echogenicity. No solid or suspicious masses. No hydronephros is. No calcifications. PERITONEAL AND RIGHT PLEURAL SPACE: No ascites or effusions. OTHER: No other significant finding. IMPRESSION: FATTY INFILTRATION OF THE LIVER. OTHERWISE NORMAL RIGHT UPPER QUADRANT ULTRASOUND. TECHNICAL DOCUMENTATION: JOB ID: [id number] [employer]- All Rights Reserved Reading location - IP/workstation name: [email or web address]
== END ==
LOC: WI 07:55
PROVIDERS: ATTEND Internal Medicine Gastroenterology
DX: K74.3 Primary biliary cirrhosis (principal)
CPT/HCPCS: 76705